=== PATIENT | female | born 1960 | race Caucasian/White ===

== ENCOUNTER → 2016-11-12 16:22 | Outpatient (CLI) | payer BC ==
[2010-01-25 14:30] VITALS: BMI 44.9
== END | disposition home or self-care (01) ==
LOC: D.MAMMO 09:45
DX: Z12.31 Encounter for screening mammogram for malignant neoplasm of breast (principal)

== ENCOUNTER → 2018-05-19 20:55 | Outpatient (CLI) | payer BC ==
[2010-01-25 14:30] VITALS: BMI 44.9
== END | disposition home or self-care (01) ==
LOC: D.MAMMO 16:00
DX: Z12.31 Encounter for screening mammogram for malignant neoplasm of breast (principal)

== ENCOUNTER → 2018-05-20 10:23 | Outpatient (CLI) | payer BC ==
[~2018-05-20] VITALS: Ht 152.4 cm; Wt 102.1 kg
[2018-05-20 12:31] VITALS: Ht 152.4 cm; Wt 102.1 kg
== END | disposition home or self-care (01) ==
LOC: D.FANS 09:00
DX: E66.01 Morbid (severe) obesity due to excess calories (principal)